=== PATIENT | female | born 1995 | race Two or more races ===

== ENCOUNTER 2017-09-14 14:01 | Emergency (ER) | END 2017-09-14 16:00 | disposition home or self-care (01) ==

== ENCOUNTER 2018-05-07 13:30 | Emergency (ER) | END 2018-05-07 15:18 | disposition home or self-care (01) ==

== ENCOUNTER 2018-05-08 05:17 | Emergency (ER) | END 2018-05-08 06:51 | disposition home or self-care (01) ==